=== PATIENT | male | born 1970 ===

== ENCOUNTER 2017-08-31 16:40 | Emergency (ER) | payer OTHER ==
[2017-08-31 16:57] VITALS: BMI 26.6
[2017-08-31 16:59] VITALS: PULSE 80
[2017-08-31] MEDS ORDERED: HYDROmorphone 0.5 mg/0.5 ml ISec IM STA (17:42)
[2017-08-31] MEDS ORDERED: Bupivacaine 0.25% Inj(30mL) IJ STA (18:00)
--- NOTE | 2017-08-31 18:42 | PCM.SURG1 ---
Surgeon's Initial Post Op Note - Surgeon's Notes Surgeon: Brennen Levin Registered Nurse Surgical Services: [facility] Type of Anesthesia: Local Pre-Operative Diagnosis: Thrombosed hemorrhoid Operative Findings: 10cc blood clot Post-Operative Diagnosis: Same Operation Performed: Incision and drainage of R posterior thrombosed hemorroid Specimen/Specimens Removed: 10cc blood clot Estimated Blood Loss: EBL {In ML}: 5 Blood Products Given: N/A Drains Used: No Drains Post-Op Condition: Good Date of Surgery/Procedure: 08/31/17 Time of Surgery/Procedure: 18:43
[2017-08-31 19:25] VITALS: BP 130/85; RESP 19; TEMP 98; O2SAT 99
--- NOTE | 2017-08-31 20:23 | ED PDOC ---
Arrival/HPI - General Chief Complaint: GI Problem Time Seen by Provider: 08/31/17 17:42 Historian: Patient - History of Present Illness Narrative History of Present Illness (Text): 08/31/17 17:42 A 47 year old male, with no significant past medical history, presents to the emergency department complaining of rectal pain that began earlier today. Patient reports never having symptom before. States having difficulty passing stool due to pain. Patient denies any bloody stool, vomiting, fever, or any other complaints at this time. No PMD Time/Duration: Other (began earlier today) Symptom Onset: Sudden Symptom Course: Unchanged Past Medical History - Provider Review Nursing Documentation Reviewed: Yes - Cardiac Hx Cardiac Disorders: No - Pulmonary Hx Respiratory Disorders: No - Neurological Hx Neurological Disorder: No - HEENT Hx HEENT Disorder: No - Renal Hx Renal Disorder: No - Endocrine/Metabolic Hx Endocrine Disorders: No - Hematological/Oncological Hx Blood Disorders: No - Integumentary Hx Dermatological Disorder: No - Musculoskeletal/Rheumatological Hx Musculoskeletal Disorders: No - Gastrointestinal Hx Gastrointestinal Disorders: No - Genitourinary/Gynecological Hx Genitourinary Disorders: No - Psychiatric Hx Psychophysiologic Disorder: No Hx Substance Use: No Family/Social History - Physician Review Nursing Documentation Reviewed: Yes Family/Social History: No Known Family HX Smoking Status: Never Smoked Hx Alcohol Use: No Hx Substance Use: No Allergies/Home Meds Allergies/Adverse Reactions: Allergies No Known Allergies Allergy (Verified 08/31/17 16:57) Home Medications: Home Meds Medication Instructions Recorded Confirmed No Known Home Med 08/31/17 08/31/17 Review of Systems - Physician Review All systems were reviewed & negative as marked: Yes - Review of Systems Constitutional: absent: Fevers Gastrointestinal: Other (rectal pain). absent: Stool Changes (no bloody stool; difficulty passing stool due to rectal pain), Vomiting Physical Exam Vital Signs Reviewed: Yes Vital Signs Temp Pulse Resp BP Pulse Ox 08/31/17 18:44 98 F 80 19 130/85 99 08/31/17 16:59 98.5 F 80 17 136/95 H 97 08/31/17 16:58 98.5 F 80 19 136/95 H 97 Temperature: Afebrile Blood Pressure: Normal Pulse: Regular Respiratory Rate: Normal Appearance: Positive for: Well-Appearing Pain Distress: None Mental Status: Positive for: Alert and Oriented X 3 - Systems Exam Head: Present: Atraumatic, Normocephalic Pupils: Present: PERRL Extroacular Muscles: Present: EOMI Conjunctiva: Present: Normal Mouth: Present: Moist Mucous Membranes Neck: Present: Normal Range of Motion Respiratory/Chest: Present: Clear to Auscultation, Good Air Exchange. No: Respiratory Distress, Accessory Muscle Use Cardiovascular: Present: Regular Rate and Rhythm, Normal S1, S2. No: Murmurs Abdomen: Present: Normal Bowel Sounds. No: Tenderness, Distention, Peritoneal Signs Rectal: Present: Hemorrhoids (thrombosis hemorroid) Back: Present: Normal Inspection Upper Extremity: Present: Normal Inspection. No: Cyanosis, Edema Lower Extremity: Present: Normal Inspection. No: Edema Neurological: Present: GCS=15, CN II-XII Intact, Speech Normal Skin: Present: Warm, Dry, Normal Color. No: Rashes Psychiatric: Present: Alert, Oriented x 3, Normal Insight, Normal Concentration Medical Decision Making ED Course and Treatment: 08/31/17 17:42 Impression: 47 year old male with rectal pain. Physical exam shows thrombosis hemorrhoid; rest of examination is normal. Plan: -- Marcaine -- Dilaudid -- Reassess and disposition Progress Notes: 08/31/2017 17:50 Patient was seen by surgical supply assistant and had drainage done by surgical team. Patient cleared for discharge and to followup with Dr. Shaw earlier next week. - Medication Orders Current Medication Orders: Discontinued Medications Bupivacaine HCl (Marcaine 0.25%) 20 ml IJ STAT STA Stop: 08/31/17 18:01 Hydromorphone HCl (Dilaudid) 0.5 mg IM STAT STA Stop: 08/31/17 17:43 Last Admin: 08/31/17 18:11 Dose: 0.5 mg MAR Pain Assessment Document 08/31/17 18:11 LA (Rec: 08/31/17 18:12 LA [id number]) Pain Reassessment Is this a pain reassessment? No Sleep Is patient sleeping during reassessment? No Presence of Pain Presence of Pain Yes Pain Scale Used Pain Scale Used Numeric IM Administration Charges Document 08/31/17 18:11 LA (Rec: 08/31/17 18:12 LA [id number]) Injection Site MAR Injection Site Left Gluteus Medius Charges for Administration # of IM Administrations 1 - Scribe Statement The provider has reviewed the documentation as recorded by the Scribe Shaji Ma Provider Scribe Attestation: All medical record entries made by the Scribe were at my direction and personally dictated by me. I have reviewed the chart and agree that the record accurately reflects my personal performance of the history, physical exam, medical decision making, and the department course for this patient. I have also personally directed, reviewed, and agree with the discharge instructions and disposition. Disposition/Present on Arrival - Present on Arrival Any Indicators Present on Arrival: No History of DVT/PE: No History of Uncontrolled Diabetes: No Urinary Catheter: No History of Decub. Ulcer: No History Surgical Site Infection Following: None - Disposition Have Diagnosis and Disposition been Completed?: Yes Diagnosis: Thrombosed hemorrhoids Disposition: HOME/ ROUTINE Disposition Time: 18:40 Condition: IMPROVED Discharge Instructions (ExitCare): Hemorrhoids (DC) Additional Instructions: Follow up at Dr. Shaw's office next week for check up and to discuss scheduling for hemorrhoidectomy OK to take shower tomorrow Keep packing gauze to prevent bleeding Take packing off when taking shower or defecating. Drink plenty of fluid and take fiber supplement to prevent constipation or straining Referrals: Joe Shaw MD [Staff Provider] - Follow up with primary Forms: [employer] (Italian)
== END 2017-08-31 19:30 | disposition home or self-care (01) ==
LOC: ED 16:40
DX: K64.5 Perianal venous thrombosis (principal)
CPT/HCPCS: 46083; 96372; 99284; J1170